=== PATIENT | female | born 1945 | race Caucasian/White ===

== ENCOUNTER → 2018-09-02 | Outpatient (CLI) | payer MEDICARE, OTHER ==
[~2018-09-02] MED LIST: CLINDAMYCIN HC300 MG PO; CLOPIDOGREL75 MG PO; IRON325 M1 PO; LOSARTAN POTASS50 MG PO; PROTONIX40 MG PO
== END ==
LOC: RAD 10:41
PROVIDERS: ATTEND Family Medicine
DX: M79.89 Other specified soft tissue disorders (principal)
CPT/HCPCS: 93971

== ENCOUNTER 2018-09-03 17:24 | Inpatient (IN) | payer MEDICARE, OTHER ==
[~2018-09-03] VITALS: Ht 167.6 cm; Wt 54.0 kg
--- OUTSIDE RECORDS SUMMARY | 2018-09-03 17:27 | XMS REPORT ---
Author Author [facility] Address Unknown Phone Unavailable Care Team Providers Care Room Worker Name Role Phone DLAI MARY Unavailable Unavailable Problems This patient has no known problems. Allergies, Adverse Reactions, Alerts This patient has no known allergies or adverse reactions. Medications This patient has no known medications. Results Test Description Test Time Test Comments Text Results Atomic Results Result Comments CT CHEST W [place] [address] Patient Name: DINA OLIVA MR #: [id number] : 1945 Age/Sex: 72/F Req #: [id number] Adm Physician: Ordered by: MARY MCNALLY DO Report #: [id number] Location: CT Room/Bed: Procedure: [id number] CT/CT CHEST W Exam Date: 07/15/17 Exam Time: 1608 REPORT STATUS: Signed PROCEDURE: CT scan of the chest WITH intravenous contrast, using PE protocol. TECHNIQUE: The chest was scanned utilizing a multidetector helical scanner from the lung apex through the level of the adrenal glands after the IV administration of 69 cc of Isovue 370, with special concentration in the pulmonary arteries. Coronal and sagittal multiplanar reformations were obtained. COMPARISON: CT, CT ABDOMEN/PELVIS W CONTRAST, 06/12/2011, 12:40. INDICATIONS: Suspect PE, ELEVATED D DIMER FINDINGS: Lines/tubes: None. Lungs and Airways: No filling defects in the main, right or left pulmonary arteries to suggest pulmonary embolism. Focal subpleural scarring in the posterior right lower lobe adjacent to small fat containing diaphragmatic hernia (series 4, image 113). Stable focal subpleural 6 mm nodular density in the anterior right lower lobe (series 4, image 100 and sagittal image 26). No other nodules. No consolidation, or other opacities. Airways are clear, without endobronchial lesions. Pleura: No effusion, or pneumothorax. Heart and mediastinum: Prominence of the left thyroid lobe, with a 5 mm calcified nodule (series 3, image 22). Heart size is normal. No pericardial effusion. Atherosclerotic calcification of the coronary arteries and thoracic aorta. Mid descending aorta aneurysm, which measures approximately 5.3 x 4.6 cm (series 3, image 62), however, there is a posterior projection at the mid thoracic aorta level with maximum diameter of 6.2 cm (series 3, image 65 and sagittal image 61). Moderate atherosclerotic calcification of the thoracic aorta with moderate soft plaque, worse in the mid descending aorta (for example, series 3, image 76). No periaortic hematoma. Main pulmonary artery is normal in caliber. Lymph nodes: Mildly enlarged right lower paratracheal lymph node, which measures 1.1 cm in short axis. No other mediastinal or any hilar or axillary adenopathy. Abdomen: Limited contrast-enhanced views of the upper abdomen show no abnormality within the visualized liver. Calcified splenic granulomas. 1.2 x 0.9 cm low density lesion in the left adrenal gland, which measures less than 10 HU, consistent with a benign, lipid rich adrenal adenoma (series 3, image 112).. Punctate nonobstructing calculus in the superior pole of the left kidney (series 3, image 119). Bones: No acute bony abnormalities. Multilevel degenerative disc changes in the thoracic spine. IMPRESSION: 1. no CT evidence of pulmonary embolism. 2. Stable 6 mm nodular density in the anterior right lower lobe since 2010, which is presumed benign. 3. No consolidation or effusion. 4. Mid descending thoracic aortic aneurysm measuring 5.3 x 4.6 cm, however, a posterior projection of the mid aorta level has a maximum diameter of 6.2 cm. No periaortic hematoma. Moderate atherosclerotic calcified and soft plaque disease of the aorta. 5. Mildly enlarged right lower paratracheal lymph node, which is likely reactive. No other adenopathy is identified. 6. 1.2 cm left adrenal benign lipid rich adenoma. No further diagnostic or followup imaging is indicated. 7. Punctate nonobstructing calculus in the superior pole of the left kidney. 8. Findings discussed with Suad Shah PA-C July 15, 2017 1651 hrs. Daiana Dunn M.D. Dictated by: Daiana Dunn M.D. on 07/15/2017 at 17:00 Electronically approved by: Daiana Dunn M.D. on 07/15/2017 at 17:00 Dictated By: DAIANA DUNN MD 170 Transcribed By: PABLO on 07/15/171699 COPY TO: MARY MCNALLY DO
--- OUTSIDE RECORDS SUMMARY | 2018-09-03 17:27 | XMS REPORT | Clinical Summary ---
Author Author [facility] Organization [facility] Address Unknown Phone Unavailable Care Team Providers Care Sole Molder Name Role Phone Asked, No Pcp PCP Unavailable Allergies Comments Active Allergy Reactions Severity Noted Date vomiting Codeine GI 03/10/2017 Intolerance Some anesthesia- intolerance - Nausea / vomiting Other Other (See 03/10/2017 Comments) Medications End Date Status Medication Sig Dispensed Refills Start Date Active omeprazole OTC (PriLOSEC Take 20 mg by 0 OTC) 20 MG EC tablet mouth daily. Active fluticasone (FLONASE) 50 2 sprays by 0 mcg/actuation nasal spray Each Nare route daily. Active albuterol (PROAIR Inhale 2 0 HFA,PROVENTIL puffs every 6 HFA,VENTOLIN HFA) 90 (six) hours mcg/actuation inhaler as needed for wheezing. Active potassium chloride TAKE 1 TABLET 90 tablet 0 (KLOR-CON) 10 MEQ CR BY MOUTH 7 tablet DAILY FOR 3 DAYS Active clopidogrel (PLAVIX) 75 TAKE 1 TABLET 30 tablet 0 08/21/201 mg tablet BY MOUTH 7 EVERY DAY Active metoprolol tartrate Take 50 mg by 0 (LOPRESSOR) 50 mg tablet mouth daily. Active gabapentin (NEURONTIN) Take 325 mg 0 300 mg capsule by mouth 2 (two) times a day. 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, bilateral legs Acute respiratory insufficiency 04/01/2017 S/P aorto-bifemoral bypass surgery 04/01/2017 Postoperative anemia due to acute blood loss 04/01/2017 Esophageal obstruction (inability to pass NGT) 04/01/2017 Current smoker 04/01/2017 Hyperglycemia 04/01/2017 Ileus 03/26/2017 Overview: Added automatically from request for surgery [id number] Encounters Care Team Description Date Type Specialty Humberto Romero MD Chronic ischemic heart disease; Thoracic aortic aneurysm without rupture 05/28/2018 Hospital Radiology Encounter Humbreto Romero MD Chronic ischemic heart disease; Thoracic aortic aneurysm without rupture 05/28/2018 Hospital Radiology Encounter Humberto Romero MD Chronic ischemic heart disease (Primary Dx); Thoracic aortic aneurysm without rupture 05/25/2018 Transcribe Access Orders after 09/02/2017 Family History Medical History Relation Name Comments Clotting disorder Father Kidney failure Mother Relation Name Status Comments Father Mother Social History Date Tobacco Use Types Packs/Day Years Used Started: 03/18/2017 Current Every Day Smoker Cigarettes 1 50 Alcohol Use Drinks/Week oz/Week Comments No Sex Assigned at Date Recorded Not on file Industry Job Start Date Occupation Not on file Not on file Not on file Travel End Travel History Travel Start No recent travel history available. Last Filed Vital Signs Time Taken Vital Sign Reading - Blood Pressure - - Pulse - - Temperature - - Respiratory Rate - - Oxygen Saturation - - Inhaled Oxygen - Concentration 05/28/2018 4:38 PM CDT Weight 54 kg (119 lb) 05/28/2018 4:38 PM CDT Height 167.6 cm (5' 6") 05/28/2018 4:38 PM CDT Body Mass Index 19.21 Plan of Treatment Health Maintenance Due Date Last Done Comments BREAST CANCER SCREENING 01/13/1996 COLON CANCER SCREENING 01/13/1996 SHINGRIX VACCINE (1 of 2) 01/13/1996 ZOSTER VACCINE 2006 PNEUMOCOCCAL 2011 POLYSACCHARIDE VACCINE AGE 65 AND OVER PNEUMOCOCCAL-13 2011 INFLUENZA VACCINE 05/05/2018 Implants Device Identifier Shelf Expiration Date Model / Serial / Lot Implanted Type Area Manufactur er 11/01/2021 [id number] / / [id number] Arco Perph Vasclr Ptfe 1.2x10cm Vascular N/A: N/A BARD 1.65mm - [id number] Graft PERIPHERAL Implanted: 04/01/2017 (Quantity not VASCULAR on file) 01/02/2019 [id number] / / [id number] Graft Vasclr Velour Dbl Bifrctn Vascular N/A: N/A ATRIUM Plystr 8x16mm 40cm - [id number] Graft MEDICAL Implanted: 04/01/2017 (Quantity not [place] on file) 07/08/2021 [id number] / / [id number] Patch Vasclr Perph 0.8x8cm Vascular Right: N/A CAMELIA Wardcu-Guard - [id number] Graft BIOSCIENCE Implanted: Qty: 1 on 04/01/2017 by Km Munoz MD Procedures Comments Procedure Name Priority Date/Time Associated Diagnosis CT ANGIOGRAM LOWER Routine 05/28/2018 Chronic ischemic heart EXTREMITY W WO CONTRAST 6:33 PM CDT disease BILATERAL Thoracic aortic aneurysm without rupture CT ANGIOGRAM CHEST W WO Routine 05/28/2018 Chronic ischemic heart CONTRAST 6:33 PM CDT disease Thoracic aortic aneurysm without rupture ESTIMATED GFR Routine 05/28/2018 4:49 PM CDT POC CREATININE Routine 05/28/2018 4:49 PM CDT after 09/02/2017 Results * CTA Lower Extremity W Wo Contrast Bilateral (05/28/2018 6:33 PM CDT) Narrative Performed At EXAMINATION:CT ANGIOGRAM LOWER EXTREMITY W WO CONTRAST BILATERAL [facility] CLINICAL HISTORY:I25.9 Chronic ischemic heart diseaseunspecified, I71.2 Thoracic aortic aneurysmwithout rupture, CHRONIC ISCHEMIC HEART DISEASE TECHNIQUE: Multiple CT angiographic images of the abdomen, pelvis, and bilateral lower extremities were obtained during intravenous administration of iodinated contrast. Multiple computerized reformatted images as well as 3-D volume rendered images were also obtained. CT imaging was performed with iterative reconstruction techniques and/or automated exposure control to reduce radiation dose. COMPARISON:None. FINDINGS: Abdomen/Pelvis CTA: Prominent cholelith noted within the fundus of the gallbladder. 3.5 cm fusiform infrarenal abdominal aortic aneurysm is present. Scattered vascular calcifications are seen throughout. The mid mesenteric vessels are in a swirling pattern likely due to malrotation, developmental variant. Status post aortobifem bypass graft. Contrast passes freely through the graft material.Minimal contrast is seen within the zuni internal/external iliac arteries as a result. Remainder of the limited visualization of the liver, stomach, pancreas, kidneys, spleen, GI tract, bony and soft tissue structures is unremarkable, apart from degenerative changes of the spine. Right lower extremity CTA: High-grade stenosis noted at the origin of the right superficial femoral artery. This vessel is diminutive and highly stenotic throughout its length. The right profunda femoris artery is prominent. Status post right total knee arthroplasty. Metallic scatter artifact precludes full evaluation of the adjacent vasculature. The visualized aspects of the right popliteal artery are also diminutive. Contrast extends into the infrageniculate vasculature primarily via the peroneal artery. The anterior/posterior tibialis arteries are not well opacified. Left lower extremity CTA: High-grade stenosis noted at the origin of the left superficial femoral artery. This vessel is diminutive and highly stenotic throughout its length. The left profunda femoris artery is prominent. Status post left total knee arthroplasty. Metallic scatter artifact precludes full evaluation of the adjacent vasculature. The visualized aspects of the left popliteal artery are also diminutive. The mid left popliteal artery is occluded. Contrast extends into the infrageniculate vasculature primarily via the peroneal and anterior tibialis arteries. The posterior tibialis artery is not well opacified. IMPRESSION: Cholelithiasis. 3.5 cm AAA status post aortobifem bypass graft. Focal presumed chronic occlusions within the left mid popliteal artery. Limited single vessel runoff of the right lower extremity. Limited two-vessel runoff of the left lower extremity. [facility]-[id number] Procedure Note Hm Interface, Radiology Results Incoming - 05/28/2018 8:02 PM CDT EXAMINATION: CT ANGIOGRAM LOWER EXTREMITY W WO CONTRAST BILATERAL CLINICAL HISTORY: I25.9 Chronic ischemic heart disease unspecified, I71.2 Thoracic aortic aneurysm without rupture, CHRONIC ISCHEMIC HEART DISEASE TECHNIQUE: Multiple CT angiographic images of the abdomen, pelvis, and bilateral lower extremities were obtained during intravenous administration of iodinated contrast. Multiple computerized reformatted images as well as 3-D volume rendered images were also obtained. CT imaging was performed with iterative reconstruction techniques and/or automated exposure control to reduce radiation dose. COMPARISON: None. FINDINGS: Abdomen/Pelvis CTA: Prominent cholelith noted within the fundus of the gallbladder. 3.5 cm fusiform infrarenal abdominal aortic aneurysm is present. Scattered vascular calcifications are seen throughout. The mid mesenteric vessels are in a swirling pattern likely due to malrotation, developmental variant. Status post aortobifem bypass graft. Contrast passes freely through the graft material. Minimal contrast is seen within the zuni internal/external iliac arteries as a result. Remainder of the limited visualization of the liver, stomach, pancreas, kidneys, spleen, GI tract, bony and soft tissue structures is unremarkable, apart from degenerative changes of the spine. Right lower extremity CTA: High-grade stenosis noted at the origin of the right superficial femoral artery. This vessel is diminutive and highly stenotic throughout its length. The right profunda femoris artery is prominent. Status post right total knee arthroplasty. Metallic scatter artifact precludes full evaluation of the adjacent vasculature. The visualized aspects of the right popliteal artery are also diminutive. Contrast extends into the infrageniculate vasculature primarily via the peroneal artery. The anterior/posterior tibialis arteries are not well opacified. Left lower extremity CTA: High-grade stenosis noted at the origin of the left superficial femoral artery. This vessel is diminutive and highly stenotic throughout its length. The left profunda femoris artery is prominent. Status post left total knee arthroplasty. Metallic scatter artifact precludes full evaluation of the adjacent vasculature. The visualized aspects of the left popliteal artery are also diminutive. The mid left popliteal artery is occluded. Contrast extends into the infrageniculate vasculature primarily via the peroneal and anterior tibialis arteries. The posterior tibialis artery is not well opacified. IMPRESSION: Cholelithiasis. 3.5 cm AAA status post aortobifem bypass graft. Focal presumed chronic occlusions within the left mid popliteal artery. Limited single vessel runoff of the right lower extremity. Limited two-vessel runoff of the left lower extremity. [facility]-[id number] Performing Organization Address City/State/Zipcode Phone Number [facility] [address] [place] [address] * CTA Chest W Wo Contrast (05/28/2018 6:33 PM CDT) Narrative Performed At EXAMINATION:CT ANGIOGRAM CHEST W WO [facility]AST [facility] CLINICAL HISTORY:I25.9 Chronic ischemic heart diseaseunspecified, I71.2 Thoracic aortic aneurysmwithout rupture, CHRONIC ISCHEMIC HEART DISEASE TECHNIQUE: Multiple CT angiographic images of the chest were obtained during intravenous administration of contrast. Multiple computerized reformatted images as well as 3-D volume rendered images were also obtained. Precontrast images of the chest were also obtained. CT imaging was performed with iterative reconstruction technique and/or automated exposure control to reduce radiation dose. COMPARISON:None available FINDINGS: CTA: 1. Thoracic Aorta: Extensive atherosclerotic disease of the thoracic aorta. Ascending thoracic aorta at the level of the right pulmonary artery measures up to 32 mm, which is within normal limits. The aortic arch contains both calcified and noncalcified mural plaque and measures up to 28 mm. There is fusiform aneurysmal dilatation of the descending thoracic aorta which maximally measures up to 49 mm and without significant change in appearance since previous examination. There is extensive mural plaquing of the descending thoracic aorta. The aorta at the level of the diaphragmatic hiatus measures up to 32 mm. Partially imaged extensive atherosclerotic disease involving the upper abdominal aorta and mesenteric vasculature. 2. Thoracic Branch Vessels: Atherosclerosis of the thoracic branch vessels without a significant stenosis. The vertebral arteries are widely patent bilaterally. The subclavian and common carotid arteries are patent. 3. Additional Findings: none CHEST: 1. Heart: Heart size is within normal limits. Coronary artery calcifications. 2. Nodes: No significant adenopathy is seen in the base of the neck. The right lobe of the thyroid gland has either been previously resected or is diminutive in appearance. No significant adenopathy is present within the axilla. No significant mediastinal or hilar lymph nodes by size criteria. 3. Lungs: Emphysema is present throughout the lungs with peripheral airway wall thickening. There is apical pleural scarring. Minimal atelectasis is seen in the lung bases. Stable right basilar nodule versus nodular scarring adjacent to the right diaphragmatic surface on series 4, image 80 measuring up to 6 mm. 4. Nodule:No suspicious pulmonary nodules or masses. 5. Fluid: No pleural effusions. 6. Additional Findings: Degenerative changes of the bones. No suspicious bony lesion. Limited assessment of the upper abdomen demonstrates no focal abnormality within the liver. No definite abnormality within the imaged portions of the solid organs. Tiny hiatal hernia. IMPRESSION: Stable descending thoracic aortic aneurysm measuring up to 49 mm. Additional findings and details as above. [facility]-[id number] Procedure Note [facility], Radiology Results Incoming - 05/28/2018 6:58 PM CDT EXAMINATION: CT ANGIOGRAM CHEST W WO CONTRAST CLINICAL HISTORY: I25.9 Chronic ischemic heart disease unspecified, I71.2 Thoracic aortic aneurysm without rupture, CHRONIC ISCHEMIC HEART DISEASE TECHNIQUE: Multiple CT angiographic images of the chest were obtained during intravenous administration of contrast. Multiple computerized reformatted images as well as 3-D volume rendered images were also obtained. Precontrast images of the chest were also obtained. CT imaging was performed with iterative reconstruction technique and/or automated exposure control to reduce radiation dose. COMPARISON: None available FINDINGS: CTA: 1. Thoracic Aorta: Extensive atherosclerotic disease of the thoracic aorta. Ascending thoracic aorta at the level of the right pulmonary artery measures up to 32 mm, which is within normal limits. The aortic arch contains both calcified and noncalcified mural plaque and measures up to 28 mm. There is fusiform aneurysmal dilatation of the descending thoracic aorta which maximally measures up to 49 mm and without significant change in appearance since previous examination. There is extensive mural plaquing of the descending thoracic aorta. The aorta at the level of the diaphragmatic hiatus measures up to 32 mm. Partially imaged extensive atherosclerotic disease involving the upper abdominal aorta and mesenteric vasculature. 2. Thoracic Branch Vessels: Atherosclerosis of the thoracic branch vessels without a significant stenosis. The vertebral arteries are widely patent bilaterally. The subclavian and common carotid arteries are patent. 3. Additional Findings: none CHEST: 1. Heart: Heart size is within normal limits. Coronary artery calcifications. 2. Nodes: No significant adenopathy is seen in the base of the neck. The right lobe of the thyroid gland has either been previously resected or is diminutive in appearance. No significant adenopathy is present within the axilla. No significant mediastinal or hilar lymph nodes by size criteria. 3. Lungs: Emphysema is present throughout the lungs with peripheral airway wall thickening. There is apical pleural scarring. Minimal atelectasis is seen in the lung bases. Stable right basilar nodule versus nodular scarring adjacent to the right diaphragmatic surface on series 4, image 80 measuring up to 6 mm. 4. Nodule:No suspicious pulmonary nodules or masses. 5. Fluid: No pleural effusions. 6. Additional Findings: Degenerative changes of the bones. No suspicious bony lesion. Limited assessment of the upper abdomen demonstrates no focal abnormality within the liver. No definite abnormality within the imaged portions of the solid organs. Tiny hiatal hernia. IMPRESSION: Stable descending thoracic aortic aneurysm measuring up to 49 mm. Additional findings and details as above. [facility]-[id number] Performing Organization Address City/State/Zipcode Phone Number [facility] [address] [place] [address] * Estimated GFR (05/28/2018 4:49 PM CDT) GFR Non Af Amer >90 mL/min/1.73 m2 [facility] DEPARTMENT OF PATHOLOGY AND GENOMIC MEDICINE GFR Af Amer >90 mL/min/1.73 m2 [facility] DEPARTMENT OF Comment: PATHOLOGY AND Chronic kidney disease: <60 GENOMIC MEDICINE mL/min/1.73m2 Kidney failure: <15 mL/min/1.73m2 The estimated GFR is calculated from the IDMS-traceable Modification of Diet in Renal Disease Equation. The accuracy of the calculation is poor when the creatinine is normal. Calculated values >90 mL/min/1.73m2 are not reported. This equation has not been validated in children (<18 years), women, the elderly (>70 years), or ethnic groups other than Caucasians and Americans. Specimen Blood Performing Organization Address City/State/Zipcode Phone Number [facility] DEPARTMENT OF [address] [place] [address] PATHOLOGY AND GENOMIC MEDICINE * POC creatinine (05/28/2018 4:49 PM CDT) POC creatinine 0.6 0.5 - 0.9 mg/dl [facility] DEPARTMENT OF Comment: PATHOLOGY AND Meter ID: [id number] GENOMIC MEDICINE Rn Anesthesiology: [employer] Specimen Blood Performing Organization Address City/State/Zipcode Phone Number [facility] DEPARTMENT OF [address] [place] [address] PATHOLOGY AND GENOMIC MEDICINE after 09/02/2017 Insurance Payer Benefit Subscriber ID Type Phone Address Plan / Group MEDICARE MEDICARE xxxxxxxxxx Medicare [place] PART A AND B [employer] [place] [employer] [place] Advance Directives Patient has advance care planning documents on file. For more information, deirdre knight contact: Jignesh Cherry [address] [place] [id number]
[2018-09-03] MEDS ORDERED: SODIUM CHLORIDE 0.9% 1000ML 1,000 ML IV STA (18:40)
[2018-09-03] MEDS ORDERED: CLINDAMYCIN 600MG / 50ML 50 ML IV SCH (18:45)
[2018-09-03] MEDS ORDERED: MORPHINE SULFATE 2 MG/ML SYR IV ONE (18:50)
[2018-09-03] MEDS ORDERED: ONDANSETRON HCL INJ 2 MG/ML VIAL IV ONE (19:00)
[2018-09-03 20:40] LABS: BASOPHILS % 0.4 % (0.0-1.0); EOSINOPHILS % 10.2 % (0.0-6.0); LYMPHOCYTES # (AUTO) 2.7 (1.0-3.2); LYMPHOCYTES % 27.5 % (18.0-39.1); MEAN CORPUSCULAR HEMOGLOBIN 14.5 pg (28-32); MEAN CORPUSCULAR HGB CONC 27.3 g/dL (31-35); MEAN CORPUSCULAR VOLUME 53.2 fL (81-99); MONOCYTES # (AUTO) 0.8 (0.2-0.8); MONOCYTES % 7.6 % (4.4-11.3); NEUTROPHILS # (AUTO) 5.4 (2.1-6.9); NEUTROPHILS % 53.9 % (38.7-80.0); PLATELET COUNT 384 x10e3/uL (140-360); RED BLOOD COUNT 3.93 x10e6/uL (3.6-5.1); RED CELL DISTRIBUTION WIDTH 21.3 % (11.7-14.4)
[2018-09-03 20:43] LABS: BILIRUBIN,URINE NEGATIVE (NEGATIVE); CLARITY,URINE SL CLOUDY (CLEAR); COLOR,URINE YELLOW (YELLOW); KETONES,URINE NEGATIVE (NEGATIVE); LEUKOCYTE ESTERASE ,URINE TRACE (NEGATIVE); NITRITE,URINE NEGATIVE (NEGATIVE); PROTEIN,URINE DIPSTICK NEGATIVE (NEGATIVE); URINE UROBILINOGEN 0.2 mg/dL (0.2 - 1)
[2018-09-03 20:46] LABS: HEMOGLOBIN 5.7 g/dL (12.0-16.0)
[2018-09-03 20:47] LABS: HEMATOCRIT 20.9 % (34.2-44.1)
[2018-09-03 20:51] LABS: BACTERIA,URINE MODERATE /HPF; EPITHELIAL CELLS,URINE MODERATE /LPF; WBC,URINE (MAN) 0-5 /HPF (0-5)
[2018-09-03 20:55] LABS: ALBUMIN 3.7 g/dL (3.5-5.0); ALBUMIN/GLOBULIN RATIO 1.2 (0.8-2.0); ALKALINE PHOSPHATASE 87 IU/L (40-150); ANION GAP 14.1 mmol/L (8-16); BLOOD UREA NITROGEN 11 mg/dL (7-26); BUN/CREATININE RATIO 17 (6-25); CALCIUM 9.4 mg/dL (8.4-10.2); CARBON DIOXIDE 21 mmol/L (22-29); CHLORIDE 108 mmol/L (98-107); CREATININE, SERUM 0.65 mg/dL (0.57-1.11); EST GLOMERULAR FILTRATION RATE > 60 ML/MIN (60-); GLUCOSE 100 mg/dL (74-118); POTASSIUM 4.1 mmol/L (3.5-5.1); SODIUM 139 mmol/L (136-145)
[2018-09-03 20:56] LABS: ALANINE AMINOTRANSFERASE < 6 IU/L (0-55)
[2018-09-03] MEDS ORDERED: SODIUM CHLORIDE 0.9% 250ML 250 ML IV ONE (21:15)
[2018-09-03 21:43] LABS: BASOPHILS # (AUTO) 0.1 (0.0-0.1); BASOPHILS % 0.7 % (0.0-1.0); EOSINOPHILS # (AUTO) 1.1 (0.0-0.4); LYMPHOCYTES # (AUTO) 3.1 (1.0-3.2); LYMPHOCYTES % 28.5 % (18.0-39.1); MEAN CORPUSCULAR HEMOGLOBIN 14.6 pg (28-32); MEAN CORPUSCULAR HGB CONC 27.5 g/dL (31-35); MONOCYTES % 8.7 % (4.4-11.3); NEUTROPHILS # (AUTO) 5.7 (2.1-6.9); NEUTROPHILS % 51.7 % (38.7-80.0); PLATELET COUNT 386 x10e3/uL (140-360); RED BLOOD COUNT 3.98 x10e6/uL (3.6-5.1); RED CELL DISTRIBUTION WIDTH 21.3 % (11.7-14.4)
[2018-09-03 21:45] LABS: HEMATOCRIT 21.1 % (34.2-44.1); HEMOGLOBIN 5.8 g/dL (12.0-16.0)
--- OUTSIDE RECORDS SUMMARY | 2018-09-03 22:02 | XMS REPORT | Clinical Summary ---
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, bilateral legs Acute respiratory insufficiency 04/01/2017 S/P aorto-bifemoral bypass surgery 04/01/2017 Postoperative anemia due to acute blood loss 04/01/2017 Esophageal obstruction (inability to pass NGT) 04/01/2017 Current smoker 04/01/2017 Hyperglycemia 04/01/2017 Ileus 03/26/2017 Overview: Added automatically from request for surgery [id number] Encounters Care Team Description Date Type Specialty Humberto Romero MD Chronic ischemic heart disease; Thoracic aortic aneurysm without rupture 05/28/2018 Hospital Radiology Encounter Humberto Romero MD Chronic ischemic heart disease; [...] Lot Implanted Type Area Manufactur er 11/01/2021 [id number] / / [id number] Unity Perph Vasclr Ptfe 1.2x10cm Vascular N/A: N/A BARD 1.65mm - [id number] Graft PERIPHERAL Implanted: 04/01/2017 (Quantity not VASCULAR on file) 01/02/2019 [id number] / / [id number] Graft Vasclr Velour Dbl Bifrctn Vascular N/A: N/A ATRIUM Plystr 8x16mm 40cm - [id number] Graft MEDICAL Implanted: 04/01/2017 (Quantity not SALBADOR on file) 07/08/2021 [id number] / / [id number] Patch Vasclr Perph 0.8x8cm Vascular Right: N/A CAMELIA Wardcu-Guard - [id number] Graft BIOSCIENCE Implanted: Qty: 1 on 04/01/2017 [...] graft material.Minimal contrast is seen within the robinson internal/external iliac arteries as a result. Remainder [...] two-vessel runoff of the left lower extremity. [facility]-[id number] Procedure Note Hm Interface, Radiology Results Incoming [...] material. Minimal contrast is seen within the robinson internal/external iliac arteries as a result. Remainder [...] two-vessel runoff of the left lower extremity. [facility]-[id number] Performing Organization Address City/State/Zipcode Phone Number [facility] [address] [place] [address] * CTA Chest W Wo Contrast (05/28/2018 6:33 PM CDT) Narrative Performed At EXAMINATION:CT ANGIOGRAM CHEST W WO CONTRAST [facility] CLINICAL HISTORY:I25.9 Chronic ischemic heart diseaseunspecified, I71.2 [...] mm. Additional findings and details as above. [facility]-[id number] Procedure Note [facility], Radiology Results Incoming - 05/28/2018 6:58 PM [...] mm. Additional findings and details as above. [facility]-[id number] Performing Organization Address City/State/Zipcode Phone Number [place] [address] [place] [address] * Estimated GFR (05/28/2018 4:49 PM CDT) GFR Non Af Amer >90 mL/min/1.73 m2 [facility] DEPARTMENT OF PATHOLOGY AND GENOMIC MEDICINE GFR Af Amer >90 mL/min/1.73 m2 [facility] DEPARTMENT OF Comment: PATHOLOGY AND Chronic kidney [...] Blood Performing Organization Address City/State/Zipcode Phone Number [facility] DEPARTMENT OF [address] [place] [address] PATHOLOGY AND GENOMIC MEDICINE * POC creatinine (05/28/2018 4:49 PM CDT) POC creatinine 0.6 0.5 - 0.9 mg/dl [facility] DEPARTMENT OF Comment: PATHOLOGY AND Meter ID: [id number] GENOMIC MEDICINE Coffee Sampler: Aram Pack Specimen Blood Performing Organization Address City/State/Zipcode Phone Number [facility] DEPARTMENT OF [address] [place] [address] PATHOLOGY AND GENOMIC MEDICINE after 09/02/2017 Insurance Payer Benefit Subscriber ID Type Phone Address Plan / Group MEDICARE MEDICARE xxxxxxxxxx Medicare [place] PART A AND B [employer] [place] [employer] x[employer]xxx Commercial [place] Advance Directives Patient has advance care planning documents on file. For more information, deirdre knight contact: Jignesh Cherry [address] [place] [id number]
--- OUTSIDE RECORDS SUMMARY | 2018-09-03 22:02 | XMS REPORT | Summary of Care ---
Author Author Lin Pitts M.A. Unknown Address Unknown Phone Unavailable Care Team Providers Care Adult Literacy Instructor Name Role Phone ROSA BERRY M.D. Unavailable Unavailable SUPA ROLAND N.P. Unavailable Unavailable [facility] [place], ROSA Bermudez Unavailable Unavailable Unavailable Unavailable Functional Status Name Dates Details Functional status health issues are not documented Status: Name Dates Details Cognitive status health issues are not documented Status: Problems Name Dates Details Anxiety (300.00, F41.9) Status: Active Essential hypertension, benign (401.1, I10) Status: Active Myalgia and myositis (729.1) Status: Active Abnormal loss of weight (783.21, R63.4) Status: Active Acute serous otitis media (381.01, H65.00) Status: Active Alcoholism (303.90, F10.20) Status: Active Anemia (285.9, D64.9) Status: Active COPD (chronic obstructive pulmonary disease) (496, J44.9) Status: Active Abnormal alkaline phosphatase test (790.5, R74.8) Status: Active Edema (782.3, R60.9) Status: Active Abnormal liver enzymes (790.5, R74.8) Status: Active Peripheral arteriosclerosis (440.20, I70.209) Status: Active Abdominal aortic aneurysm (441.4, I71.4) Status: Active Right leg swelling (729.81, M79.89) Status: Active Right calf pain (729.5, M79.661) Status: Active Medications Name Dates Details Fluticasone Propionate 50 MCG/ACT Nasal Suspension USE 1 SPRAY IN EACH NOSTRIL ONCE DAILY. Quantity: 16 ROSA BERRY M.D. * Start : 13-Mar-2014 Active Symbicort 160-4.5 MCG/ACT Inhalation Aerosol INHALE 2 PUFFS TWICE DAILY. RINSE MOUTH AFTER USE. * Quantity: 1 Refills: 2 ROSA BERRY M.D. Active 10.2 GM Inhaler PriLOSEC OTC TBE * Refills: 0 Active Losartan Potassium 50 MG Oral Tablet TAKE 1 TABLET DAILY * Refills: 0 Active 30 Tablet Bottle Clopidogrel Bisulfate 75 MG Oral Tablet TAKE 1 TABLET DAILY * Refills: 0 Active 30 Tablet Bottle Allergies and Adverse Reactions Name Dates Details Codeine Derivatives (Allergy) Status: Active Past Medical History Name Dates Details History of Acute recurrent sinusitis (461.9, J01.91) Status: Resolved History of essential hypertension (V12.59, Z86.79) Status: Resolved History of hyperlipidemia (V12.29, Z86.39) Status: Resolved History of osteopenia (V13.59, Z87.39) Status: Resolved Procedures Procedure Dates Details History of Tonsillectomy With Adenoidectomy Completed History of Tubal Ligation Completed History of Total Knee Arthroplasty Completed History of Thyroid Surgery Completed Immunization Name Dates Details Fluzone Quadrivalent 0.5 ML Intramuscular Suspension on: 30-Aug-2018 Family History Name Dates Details Family history of Hypertension (V17.49) Status: Active Name Dates Details Family history of malignant neoplasm of colon (V16.0, Z80.0) Status: Active Social History Name Dates Details - Status: Name Dates Details Heavy tobacco smoker Smoker. current status unknown Vital Signs Date Test Result Details [id number] Physical Findings 10 Status: Comments: PHQ-9 Adult Depression Screening [id number] BP Systolic 131 mm[Hg] Status: Comments: Location: LUE; Position: Sitting BP Diastolic 61 mm[Hg] Status: Comments: Location: LUE; Position: Sitting Height 66 in Status: Weight 115 lb Status: Body Mass Index Calculated 18.56 kg/m2 Status: Body Surface Area Calculated 1.58 m2 Status: Temperature 97.7 f Status: Comments: Method: Temporal Heart Rate 84 /min Status: Comments: Location: L Brachial Artery; Respiration Rate 16 /min Status: Physical Findings 0 Status: Comments: Alcohol Screen - How many times in the past yr have you had 5 (for M) or 4 (for F) or 4 (for all > 65yrs) or more drinks in a day? Results Date Description Value Details Results not documented Plan of Care Name Dates Details Planned Observations Planned Goals not documented Interventions Provided Instructions* Patient Specific Education Given; Done: 03 Sep 2018 Plan* To er for further eval * f/u with pcp * no charge for visit Instructions Name Dates Details Instructions not documented Encounters Appointment; ADRIEL KEENAN M.D. Encounter Diagnosis: Problem not documented On: 04-Aug-2017 9:30 Appointment; SUPA ROLAND NP Encounter Diagnosis: Problem not documented On: 03-Sep-2018 14:15
[2018-09-03] MEDS: CLINDAMYCIN 300MG 50 ML IV SCH (22:52)
[2018-09-03] MEDS ORDERED: LOSARTAN POTASS50 MG PO (23:52)
[2018-09-03] MEDS ORDERED: CLOPIDOGREL75 MG PO (23:52)
[2018-09-04] VITALS (11 sets, daily range): BP systolic 115–145; BP diastolic 56–78
[2018-09-04] MEDS: CLINDAMYCIN 300MG 50 ML IV SCH
[2018-09-04] MEDS: SODIUM CHLORIDE 0.9% 1000ML 1,000 ML IV SCH ×2 (01:03→13:18)
[2018-09-04] MEDS: PIPER-TAZ 3.375 GM 50 ML IV SCH ×4 (01:03→18:23)
[2018-09-04] MEDS ORDERED: SODIUM CHLORIDE 0.9% 250ML 250 ML ONE ×2 (02:03→08:47)
[2018-09-04] MEDS: CLINDAMYCIN PHOS 900MG/ 50ML 50 ML IV SCH ×3 (06:02→21:45)
[2018-09-04 07:25] LABS: BASOPHILS # (AUTO) 0.1 (0.0-0.1); BASOPHILS % 0.8 % (0.0-1.0); HEMATOCRIT 23.2 % (34.2-44.1); LYMPHOCYTES # (AUTO) 2.3 (1.0-3.2); LYMPHOCYTES % 25.8 % (18.0-39.1); MEAN CORPUSCULAR HEMOGLOBIN 16.8 pg (28-32); MEAN CORPUSCULAR HGB CONC 28.4 g/dL (31-35); MEAN CORPUSCULAR VOLUME 58.9 fL (81-99); MONOCYTES # (AUTO) 0.9 (0.2-0.8); MONOCYTES % 10.3 % (4.4-11.3); NEUTROPHILS # (AUTO) 4.5 (2.1-6.9); NEUTROPHILS % 51.9 % (38.7-80.0); PLATELET COUNT 282 x10e3/uL (140-360); RED BLOOD COUNT 3.94 x10e6/uL (3.6-5.1)
[2018-09-04 07:30] LABS: HEMOGLOBIN 6.6 g/dL (12.0-16.0)
[2018-09-04 08:02] LABS: BLOOD UREA NITROGEN 10 mg/dL (7-26); BUN/CREATININE RATIO 15 (6-25); CALCIUM 8.3 mg/dL (8.4-10.2); CARBON DIOXIDE 19 mmol/L (22-29); CHLORIDE 112 mmol/L (98-107); CREATININE, SERUM 0.66 mg/dL (0.57-1.11); EST GLOMERULAR FILTRATION RATE > 60 ML/MIN (60-); GLUCOSE 87 mg/dL (74-118); SODIUM 139 mmol/L (136-145)
[2018-09-04] MEDS: HYDROCODONE/APAP 5MG-325MG TAB PO PRN ×2 (11:40→21:47)
[2018-09-04 13:19] LABS: FERRITIN 7.87 ng/mL (4.63-204.00)
[2018-09-04 14:38] LABS: HEMATOCRIT 28.1 % (34.2-44.1); HEMOGLOBIN 8.4 g/dL (12.0-16.0)
--- NOTE | 2018-09-04 15:42 | History and Physical ---
CHIEF COMPLAINT: Right lower leg pain. HISTORY OF PRESENT ILLNESS: This is a 73-year-old white woman who states over the past week she has had lower leg swelling and pain. Patient underwent Doppler ultrasound of the right lower leg on September 02, 2018, which did not reveal any evidence of deep venous thrombosis. However, the patient states that her right lower leg has become more red and painful than usual. In the emergency room, patient was found to have a hemoglobin of 5.7. The hemoglobin was repeated and was confirmed with a value of 5.8. Patient was transfused 2 units of packed red blood cells overnight. The patient denies any melena or hematochezia. Patient is on clopidogrel because of history of severe peripheral artery disease. Patient states she has a brother who of colon cancer. She also has a father who of hemorrhaging secondary to peptic ulcers. Iron studies done revealed a serum iron of 25 with a TIBC of 448. Patient's percent iron saturation was low level of 6. Patient was admitted for further evaluation and treatment. Patient states that she has never had a colonoscopy and her last mammogram was 10 years ago. REVIEW OF SYSTEMS GENERAL: Weight has been stable. No fevers or chills. HEENT: No headaches. No vision changes. CARDIOVASCULAR/RESPIRATORY: Slight shortness of breath secondary to COPD. Denies any cough or chest pain at this time. GI: Denies any melena or hematochezia. Denies any abdominal pain. : Denies any UTI symptoms. NEUROMUSCULAR: Complains of swelling in her right lower leg over the last 1 week. Patient also complains of chronic pain in her bilateral feet secondary to neuropathy. FAMILY HISTORY: Brother of colon cancer. Father of hemorrhaging secondary to peptic ulcer disease. Mother of chronic leukemia. SURGICAL HISTORY 1. Bilateral total knee replacement. 2. Abdominal aortic aneurysm. 3. Bilateral femoral-popliteal bypass. SOCIAL HISTORY: This woman is , lives with her . She is retired. She is a heavy tobacco smoker. Patient states she quit drinking alcohol in 2013. PAST MEDICAL HISTORY 1. Peripheral artery disease. 2. COPD. 3. Tobacco abuse. 4. Hypertensive heart disease. HOME MEDICATIONS 1. Losartan 100 mg daily. 2. Clopidogrel 75 mg daily. ALLERGIES: CODEINE. PHYSICAL EXAMINATION GENERAL: She is awake, alert, in no distress. Very pleasant and cooperative with exam. Her and 2 adult daughters are at bedside. VITAL SIGNS: Height is 5 feet 6 inches, weighs 119 pounds. BMI is 19. INTEGUMENT: Skin is warm and dry. Patient has obvious pallor. No jaundice or diaphoresis. HEENT: Anicteric sclerae with moist mucous membranes. NECK: Supple. CARDIOVASCULAR: Distant heart sounds. Tachycardic rate and rhythm. LUNGS: No rales, no rhonchi, no wheezing. ABDOMEN: Soft. Normal bowel sounds. Nontender. EXTREMITIES: Patient has trace 1+ edema in the bilateral legs. Patient has erythema, warmth, and tenderness in the anterior aspect of the right lower leg. NEUROLOGICAL: Intact. No gross focal deficits appreciated. IMPRESSION 1. Sepsis secondary to right lower leg cellulitis. 2. Iron deficiency anemia. 3. Chronic obstructive pulmonary disease. 4. Tobacco abuse. 5. Hypertensive heart disease. 6. Peripheral artery disease. PLAN 1. Stop clopidogrel. 2. We will repeat hemoccult stool since the first one was negative for blood. 3. We will stop intravenous fluids. 4. Follow hemoglobin and hematocrit. 5. Agree with blood transfusion. 6. We will consult gastroenterology since patient most likely needs upper and lower endoscopy. 7. I ordered chest x-ray. 8. Highly recommend tobacco cessation. 9. Continue intravenous antibiotics for patient's leg cellulitis. I spent an hour in the care of this patient. Job#: [id number] TEAGAN
--- NOTE | 2018-09-04 18:25 | Diagnostic Imaging Report ---
EXAMINATION: CHEST SINGLE (PORTABLE) INDICATION: ^COPD and profound anemia ^[id number] ^1650 ^Y COMPARISON: Chest CT dated 07/15/2017 FINDINGS: AP view TUBES and LINES: None. LUNGS: Lungs are well inflated. There is no evidence of pneumonia or pulmonary edema. PLEURA: No pleural effusion or pneumothorax. HEART AND MEDIASTINUM: The cardiomediastinal silhouette is unremarkable. BONES AND SOFT TISSUES: No acute osseous lesion. Soft tissues are unremarkable. UPPER ABDOMEN: No free air under the diaphragm. IMPRESSION: No acute thoracic abnormality. Signed by: Dr. Greg Flores MD on 09/04/2018 6:21 PM
[2018-09-05] VITALS (8 sets, daily range): BP systolic 116–147; BP diastolic 56–66
[2018-09-05] MEDS: PIPER-TAZ 3.375 GM 50 ML IV SCH ×4 (00:33→18:04)
[2018-09-05] MEDS: HYDROCODONE/APAP 5MG-325MG TAB PO PRN ×3 (04:32→09:10)
[2018-09-05] MEDS: CLINDAMYCIN PHOS 900MG/ 50ML 50 ML IV SCH ×3 (05:29→21:25)
[2018-09-05 06:23] LABS: BASOPHILS # (AUTO) 0.1 (0.0-0.1); BASOPHILS % 1.1 % (0.0-1.0); EOSINOPHILS # (AUTO) 0.8 (0.0-0.4); EOSINOPHILS % 9.9 % (0.0-6.0); HEMATOCRIT 25.6 % (34.2-44.1); HEMOGLOBIN 7.7 g/dL (12.0-16.0); LYMPHOCYTES # (AUTO) 2.3 (1.0-3.2); LYMPHOCYTES % 27.9 % (18.0-39.1); MEAN CORPUSCULAR HEMOGLOBIN 18.8 pg (28-32); MEAN CORPUSCULAR HGB CONC 30.1 g/dL (31-35); MEAN CORPUSCULAR VOLUME 62.6 fL (81-99); MONOCYTES # (AUTO) 0.9 (0.2-0.8); MONOCYTES % 11.1 % (4.4-11.3); NEUTROPHILS # (AUTO) 4.2 (2.1-6.9); NEUTROPHILS % 49.8 % (38.7-80.0); PLATELET COUNT 261 x10e3/uL (140-360); RED BLOOD COUNT 4.09 x10e6/uL (3.6-5.1)
[2018-09-05 06:38] LABS: BLOOD UREA NITROGEN 8 mg/dL (7-26); BUN/CREATININE RATIO 11 (6-25); CALCIUM 8.5 mg/dL (8.4-10.2); CARBON DIOXIDE 22 mmol/L (22-29); CHLORIDE 114 mmol/L (98-107); CREATININE, SERUM 0.73 mg/dL (0.57-1.11); EST GLOMERULAR FILTRATION RATE > 60 ML/MIN (60-); GLUCOSE 86 mg/dL (74-118); SODIUM 141 mmol/L (136-145)
[2018-09-05] MEDS ORDERED: PEG (High)/E-LYTE SOLN 4,000 ML BTL PO NR (15:45)
[2018-09-06 00:37] VITALS: BP 126/60
[2018-09-06] MEDS: PIPER-TAZ 3.375 GM 50 ML IV SCH ×3 (03:10→13:12)
[2018-09-06 04:00] VITALS: BP 125/56
[2018-09-06 05:56] LABS: BASOPHILS # (AUTO) 0.1 (0.0-0.1); BASOPHILS % 0.8 % (0.0-1.0); EOSINOPHILS # (AUTO) 0.6 (0.0-0.4); EOSINOPHILS % 7.2 % (0.0-6.0); HEMATOCRIT 24.8 % (34.2-44.1); HEMOGLOBIN 7.6 g/dL (12.0-16.0); LYMPHOCYTES # (AUTO) 2.1 (1.0-3.2); LYMPHOCYTES % 24.3 % (18.0-39.1); MEAN CORPUSCULAR HGB CONC 30.6 g/dL (31-35); MEAN CORPUSCULAR VOLUME 62.2 fL (81-99); MONOCYTES # (AUTO) 0.6 (0.2-0.8); MONOCYTES % 7.4 % (4.4-11.3); NEUTROPHILS % 59.1 % (38.7-80.0); PLATELET COUNT 227 x10e3/uL (140-360); RED BLOOD COUNT 3.99 x10e6/uL (3.6-5.1)
[2018-09-06] MEDS: CLINDAMYCIN PHOS 900MG/ 50ML 50 ML IV SCH (06:02)
[2018-09-06 06:24] LABS: ANION GAP 11.7 mmol/L (8-16); BLOOD UREA NITROGEN 8 mg/dL (7-26); BUN/CREATININE RATIO 13 (6-25); CALCIUM 8.6 mg/dL (8.4-10.2); CARBON DIOXIDE 22 mmol/L (22-29); CHLORIDE 113 mmol/L (98-107); CREATININE, SERUM 0.63 mg/dL (0.57-1.11); EST GLOMERULAR FILTRATION RATE > 60 ML/MIN (60-); GLUCOSE 90 mg/dL (74-118); POTASSIUM 3.7 mmol/L (3.5-5.1); SODIUM 143 mmol/L (136-145)
[2018-09-06 07:19] LABS: HYPOCHROMASIA MODERATE
[2018-09-06 07:20] LABS: ANISOCYTOSIS MODE; PLATELET ESTIMATE ADEQUATE; PLATELET MORPHOLOGY COMMENT NORMAL; POIKILOCYTOSIS SLIGHT; RBC MORPHOLOGY COMMENT ABNORMAL
[2018-09-06 08:00] VITALS: BP 122/56
[2018-09-06 08:32] VITALS: BP 122/56
[2018-09-06] MEDS ORDERED: HYOSCYAMINE SULFATE 0.5 MG/ML INJ ONE (12:41)
[2018-09-06] MEDS ORDERED: PROPOFOL IV EMULSION 10 MG/ML 50 ML VIAL ONE (12:41)
--- NOTE | 2018-09-06 14:42 | Operative Report ---
DATE OF PROCEDURE: September 06, 2018 REFERRING PHYSICIAN: Dr. Jermaine Alex. PROCEDURES PERFORMED: 1. Esophagogastroduodenoscopy with esophageal dilatation and balloon dilatation of pyloric channel stricture. 2. Colonoscopy with polypectomy. INDICATIONS FOR EGD: Dysphagia to solids. INDICATIONS FOR COLONOSCOPY: Severe iron deficiency anemia, brother with colon cancer. MEDICATION: Patient was done under MAC. Please see anesthesiologist's note. PROCEDURE: With the patient in the left lateral decubitus position, the flexible fiberoptic Olympus gastroscope was introduced into the esophagus under direct visualization without any difficulty. An approximately 4 mm ulcer was noted at the GE junction. There was a tight stricture noted at the GE junction that could not be traversed with the scope, was dilated to size 15 over a wire per Savary dilators. The scope was able to traverse the area with ease and advanced into the stomach, traversing a small hiatal hernia. Mucosa overlying the antrum and the body revealed some patchy erythema and moderate edema, and biopsies were obtained and sent to stain for H. pylori. Pyloric channel was strictured and could not be traversed with the scope, and that was dilated to size 18 mm per TTS balloon dilators. The scope was then advanced with ease through the pylorus all the way to the 2nd portion of the duodenum. The scope was then withdrawn slowly. Mucosa overlying the proximal 2nd portion and the duodenal bulb appeared to be within normal limits. The scope was then withdrawn back into the stomach and retroflexed, and the mucosa overlying the fundus grossly appeared to be within normal limits. The previously described hiatal hernia was also noted in the retroflexed position. The scope was then straightened out. It was subsequently withdrawn. Patient tolerated the procedure well. IMPRESSION: 1. Approximately 4 mm ulcer at gastroesophageal junction without active bleeding. 2. Esophageal stricture at gastroesophageal junction, tight, could not be traversed with the scope, dilated to size 15 Savary over a wire. 3. Small hiatal hernia. 4. Gastritis biopsied. Biopsies sent to stain for H. pylori. 5. Pyloric channel stricture dilated to size 18 mm per TTS balloon dilators. PLAN: Follow up histology. Initiate Protonix 40 mg 1 p.o. q.a.m. a.c. Patient was then turned around and after adequate lubrication of the anal canal, a flexible fiberoptic Olympus colonoscope was inserted into the rectum with ease and advanced all the way to the cecum. An approximately 6 mm sessile polyp was snared from the cecum, and it was hemoclipped. The ascending appeared to be within normal limits. Two polyps were snared, two polyps were hot biopsied from the transverse colon. The descending colon appeared to be within normal limits. Four polyps were removed from the sigmoid colon, three were snared, and some were up to 1.8 cm in size, and one was hot biopsied. One polyp in the rectum was hot biopsied. The scope was then retroflexed into the distal rectum and small internal hemorrhoids were noted, none of which was actively bleeding. The scope was then straightened out. It was subsequently withdrawn. Patient tolerated the procedure well. IMPRESSION: 1. Cecal polyp snared and polypectomy site hemoclipped. 2. Transverse colon polyps times 4, 2 snared and 2 hot biopsied. 3. Sigmoid colon polyps times 4 up to 1.8 cm in size, 3 were removed per snare electrocautery and 1 was hot biopsied. 4. Rectal polyp hot biopsied. 5. Internal hemorrhoids, none actively bleeding. PLAN: Follow up histology. Initiate high-fiber low-fat diet. Patient will need a followup colonoscopy in 1 year. A total of 10 polyps were removed. Job#: [id number] EV cc:JERMAINE ALEX MD
[2018-09-06] MEDS ORDERED: IRON325 M1 PO (15:57)
[2018-09-06] MEDS ORDERED: PROTONIX40 MG PO (15:58)
[2018-09-06] MEDS ORDERED: CLINDAMYCIN HC300 MG PO (15:59)
--- NOTE | 2018-09-06 16:06 | Discharge Summary ---
ADMIT DIAGNOSES 1. Sepsis secondary to right lower leg cellulitis. 2. Iron deficiency anemia. 3. Chronic obstructive pulmonary disease. 4. Tobacco abuse. 5. Hypertensive heart disease. 6. Peripheral artery disease. DISCHARGE DIAGNOSES 1. Sepsis secondary to right lower leg cellulitis, resolved. 1. Right lower leg cellulitis, resolving. 2. Iron deficiency anemia. 3. Endoscopically proven gastric ulcer. 4. Endoscopically proven multiple colonic polyps. 5. Chronic obstructive pulmonary disease. 6. Tobacco abuse. 7. Hypertensive heart disease. 8. Peripheral artery disease. HOSPITAL COURSE: This is a 73-year-old white woman who was initially admitted to [facility] with a diagnosis of sepsis secondary to right lower leg cellulitis. During this hospitalization, patient was also found to have profound anemia secondary to iron deficiency. Patient was actually transfused 2 units of packed red blood cells during this hospitalization. During this hospitalization, the hemoglobin dropped down to 5.8 g/dl. On the day of discharge, hemoglobin was 7.6 g/dl. The patient's clopidogrel was held during this hospital stay because of the iron deficiency anemia. During this hospital stay, the patient underwent upper and lower endoscopy which revealed a 4 mm gastric ulcer as well as gastritis and a pyloric stricture. The patient's gastric pylorus was dilated with a balloon. Also during this hospitalization, the patient underwent colonoscopy which revealed multiple sigmoid, transverse and cecal polyps that were biopsied. Patient also had a rectal polyp biopsied. Patient was found to have internal hemorrhoids but no active bleeding. Moreover, the gastric ulcer seen on upper endoscopy did not show any evidence of active bleeding. The patient tolerated these procedures quite well. Her hospitalization was unremarkable. Also during this hospitalization, patient had a chest x-ray performed which did not reveal any acute intrathoracic abnormality. The patient's condition on discharge was stable. DISCHARGE MEDICATIONS 1. Iron sulfate 325 mg twice a day. 2. Clindamycin 300 mg t.i.d. for 10 days. 3. Protonix 40 mg p.o. q.a.m. for 8 weeks. Patient was also instructed to stop clopidogrel for a total of 8 weeks. 4. Losartan 100 mg daily. FOLLOWUP INSTRUCTIONS: The patient is instructed to follow up with her primary care physician, namely Dr. Rolo Newell, within 2 weeks. Tobacco cessation was highly recommended to the patient. A prescription for a topical nicotine patch was offered to the patient, but she refused. ERNESTINA ALEX MD Job#: [id number] EV cc:DO MICHAEL SARKAR MD
[2018-09-06 16:19] VITALS: BP 117/56
[2018-09-06] MEDS ORDERED: FENTANYL CITRATE/PF 100MCG/2 ML INJ ONE (18:33)
[2018-09-06] MEDS ORDERED: MIDAZOLAM HCL 2 MG/2 ML VIAL ONE (18:33)
== END 2018-09-06 17:03 | disposition home or self-care (01) | DRG 872 ==
LOC: ER 17:24 → ERHOLD 21:31 → IMCU 23:57 → OBSVTOIN 09-04 09:18 → MED/SURG 09-04 10:03 → MED/SURG3 09-04 10:11
PROVIDERS: ADMIT Internal Medicine; ATTEND Internal Medicine
PROC: 30233N1 Transfusion of Nonautologous Red Blood Cells into Peripheral Vein, Percutaneous Approach (ICD-10-PCS; principal; 2018-09-05)
PROC: 0DBP8ZX Excision of Rectum, Via Natural or Artificial Opening Endoscopic, Diagnostic (ICD-10-PCS; 2018-09-05)
PROC: 0DBH8ZX Excision of Cecum, Via Natural or Artificial Opening Endoscopic, Diagnostic (ICD-10-PCS; 2018-09-06)
PROC: 0DBL8ZX Excision of Transverse Colon, Via Natural or Artificial Opening Endoscopic, Diagnostic (ICD-10-PCS; 2018-09-06)
PROC: 0DBN8ZX Excision of Sigmoid Colon, Via Natural or Artificial Opening Endoscopic, Diagnostic (ICD-10-PCS; 2018-09-06)
PROC: 0DB78ZX Excision of Stomach, Pylorus, Via Natural or Artificial Opening Endoscopic, Diagnostic (ICD-10-PCS; 2018-09-06 10:55)
PROC: 0D748ZZ Dilation of Esophagogastric Junction, Via Natural or Artificial Opening Endoscopic (ICD-10-PCS; 2018-09-06 10:55)
PROC: 0D778ZZ Dilation of Stomach, Pylorus, Via Natural or Artificial Opening Endoscopic (ICD-10-PCS; 2018-09-06 10:55)
DX: A41.9 Sepsis, unspecified organism (principal); L03.115 Cellulitis of right lower limb; K31.1 Adult hypertrophic pyloric stenosis; D50.0 Iron deficiency anemia secondary to blood loss (chronic); K25.9 Gastric ulcer, unspecified as acute or chronic, without hemorrhage or perforation; K22.2 Esophageal obstruction; K44.9 Diaphragmatic hernia without obstruction or gangrene; K63.5 Polyp of colon; K62.1 Rectal polyp; K64.8 Other hemorrhoids; J44.9 Chronic obstructive pulmonary disease, unspecified; I11.9 Hypertensive heart disease without heart failure; K29.70 Gastritis, unspecified, without bleeding; I73.9 Peripheral vascular disease, unspecified; Z79.82 Long term (current) use of aspirin; Z80.0 Family history of malignant neoplasm of digestive organs; Z83.79 Family history of other diseases of the digestive system
CPT/HCPCS: 36415; 43239; 43450; 45384; 45385; 71045; 80048; 80053; 81001; 82270; 82607; 82728; 83540; 83605; 84466; 85014; 85018; 85025; 86850; 86900; 86920; 87040; 87086; 88305; 88312; 96360; 99284; G0378; J1980; J2250; J2543; J7030; J7050; P9016

== ENCOUNTER → 2019-02-01 | Outpatient (CLI) | payer MEDICARE, OTHER ==
--- NOTE | 2019-02-01 16:20 | Diagnostic Imaging Report ---
EXAMINATION: CHEST 2 VIEWS INDICATION: Pneumonia with COPD. COMPARISON: Chest radiograph 09/04/[address] chest with contrast 07/15/2017. FINDINGS: TUBES and LINES: None. LUNGS: The lungs are hyperinflated. No evidence of lobar pneumonia or pulmonary edema. There is mild bronchial wall thickening. PLEURA: No pleural effusion or pneumothorax. HEART AND MEDIASTINUM: The cardiomediastinal silhouette is unremarkable. The aorta is ectatic with atherosclerotic calcifications. BONES AND SOFT TISSUES: No acute osseous abnormality. UPPER ABDOMEN: No free air under the diaphragm. IMPRESSION: Emphysematous changes of the lungs without radiographic evidence of lobar pneumonia. Mild bronchial wall thickening, which may reflect bronchitis in the setting of cough. Signed by: Dr. Kenna Jimenez MD on 02/01/2019 4:15 PM
== END ==
LOC: RAD 15:20
PROVIDERS: ATTEND Internal Medicine
DX: J15.9 Unspecified bacterial pneumonia (principal); J44.1 Chronic obstructive pulmonary disease with (acute) exacerbation
CPT/HCPCS: 71046

== ENCOUNTER 2020-07-30 14:17 | Outpatient (RCR) | payer MEDICARE, OTHER ==
[2020-07-13 15:59] LABS: BASOPHILS # (AUTO) 0.1 (0.0-0.1); BASOPHILS % 0.9 % (0.0-1.0); EOSINOPHILS # (AUTO) 0.5 (0.0-0.4); EOSINOPHILS % 5.1 % (0.0-6.0); HEMATOCRIT 35.4 % (34.2-44.1); HEMOGLOBIN 10.9 g/dL (12.0-16.0); LYMPHOCYTES # (AUTO) 3.1 (1.0-3.2); LYMPHOCYTES % 29.7 % (18.0-39.1); MEAN CORPUSCULAR HEMOGLOBIN 27.3 pg (28-32); MEAN CORPUSCULAR HGB CONC 30.8 g/dL (31-35); MEAN CORPUSCULAR VOLUME 88.5 fL (81-99); MONOCYTES # (AUTO) 0.9 (0.2-0.8); MONOCYTES % 8.1 % (4.4-11.3); NEUTROPHILS # (AUTO) 5.9 (2.1-6.9); NEUTROPHILS % 55.9 % (38.7-80.0); PLATELET COUNT 272 x10e3/uL (140-360); RED CELL DISTRIBUTION WIDTH 15.4 % (11.7-14.4)
[2020-07-13 16:12] LABS: ANION GAP 15.4 mmol/L (8-16); BLOOD UREA NITROGEN 20 mg/dL (7-26); BUN/CREATININE RATIO 26 (6-25); CALCIUM 9.1 mg/dL (8.4-10.2); CARBON DIOXIDE 21 mmol/L (22-29); CHLORIDE 108 mmol/L (98-107); CREATININE, SERUM 0.76 mg/dL (0.57-1.11); EST GLOMERULAR FILTRATION RATE > 60 ML/MIN (60-); GLUCOSE 87 mg/dL (74-118); POTASSIUM 4.4 mmol/L (3.5-5.1); SODIUM 140 mmol/L (136-145)
[~2020-07-30 14:17] MED LIST changes: +COLLAGENASE OINTMENT 30 GM TUBE ONE; +LIDOCAINE/PRILOCAINE 2.5-2.5% KIT ONE
== END 2020-08-04 ==
LOC: WCC 14:17
PROVIDERS: ATTEND Internal Medicine Infectious Disease
DX: I70.238 Atherosclerosis of native arteries of right leg with ulceration of other part of lower leg (principal); L97.811 Non-pressure chronic ulcer of other part of right lower leg limited to breakdown of skin; L97.819 Non-pressure chronic ulcer of other part of right lower leg with unspecified severity; I79.8 Other disorders of arteries, arterioles and capillaries in diseases classified elsewhere; I87.2 Venous insufficiency (chronic) (peripheral); R60.0 Localized edema; I10 Essential (primary) hypertension
CPT/HCPCS: 36415; 80048; 84134; 85025; 87071; 87075; 87186; 87205

== ENCOUNTER → 2020-08-01 | Outpatient (CLI) | payer MEDICARE, OTHER ==
[~2020-08-01] MED LIST changes: -COLLAGENASE OINTMENT 30 GM TUBE ONE; -LIDOCAINE/PRILOCAINE 2.5-2.5% KIT ONE
[2020-08-01 12:57] LABS: HEMOGLOBIN 10.5 g/dL (12.0-16.0)
[2020-08-01 13:08] LABS: INR 0.93; PROTHROMBIN TIME 12.9 seconds (11.9-14.5)
[2020-08-01 13:09] LABS: PARTIAL THROMBOPLASTIN TIME 32.4 seconds (23.8-35.5)
[2020-08-01 13:12] LABS: BLOOD UREA NITROGEN 14 mg/dL (7-26); BUN/CREATININE RATIO 19 (6-25); CREATININE, SERUM 0.74 mg/dL (0.57-1.11); EST GLOMERULAR FILTRATION RATE > 60 ML/MIN (60-)
--- NOTE | 2020-08-01 15:24 | Diagnostic Imaging Report ---
EXAM: CHEST XRAY LINE PLACEMENT DATE: 08/01/2020 2:00 PM INDICATION: PICC placement COMPARISON: 02/01/2019 FINDINGS: Left-sided PICC line identified with distal tip terminating over the mid SVC. The trachea is midline. The lungs are symmetrically expanded without evidence for focal consolidation, pneumothorax, or significant pleural effusion. The cardiomediastinal silhouette is stable in appearance. Stable ectasia noted of the thoracic aorta with atherosclerotic calcifications. No acute osseous abnormality is identified. IMPRESSION: Left-sided PICC line identified with distal tip terminating over the mid SVC. Signed by: Dr. Arpit Huerta MD on 08/01/2020 3:20 PM
== END ==
LOC: DX 12:30
PROVIDERS: ATTEND Internal Medicine Infectious Disease
DX: Z45.2 Encounter for adjustment and management of vascular access device (principal); L97.919 Non-pressure chronic ulcer of unspecified part of right lower leg with unspecified severity
CPT/HCPCS: 36415; 36569; 71045; 82565; 84520; 85014; 85049; 85610; 85730

== ENCOUNTER 2020-08-31 13:16 | Outpatient (RCR) | payer MEDICARE, OTHER ==
[~2020-08-31 13:16] MED LIST changes: +COLLAGENASE OINTMENT 30 GM TUBE ONE; +LIDOCAINE VISC 2% SOLN 15 ML UDC ONE
[2020-08-31] MEDS ORDERED: LIDOCAINE VISC 2% SOLN 15 ML UDC ONE (13:22)
[2020-08-31] MEDS ORDERED: CADEXOMER IODINE 30 GM TUBE ONE (13:22)
[2020-08-31] MEDS ORDERED: LIDOCAINE/PRILOCAINE 2.5-2.5% KIT ONE (13:22)
== END 2020-09-03 ==
LOC: WCC 13:16
PROVIDERS: ATTEND Internal Medicine Infectious Disease
DX: I70.233 Atherosclerosis of native arteries of right leg with ulceration of ankle (principal); L97.311 Non-pressure chronic ulcer of right ankle limited to breakdown of skin; L97.819 Non-pressure chronic ulcer of other part of right lower leg with unspecified severity; I82.4Y1 Acute embolism and thrombosis of unspecified deep veins of right proximal lower extremity; I87.2 Venous insufficiency (chronic) (peripheral); R60.0 Localized edema; I79.8 Other disorders of arteries, arterioles and capillaries in diseases classified elsewhere; B96.89 Other specified bacterial agents as the cause of diseases classified elsewhere; I10 Essential (primary) hypertension

== ENCOUNTER → 2020-09-24 | Outpatient (CLI) | payer MEDICARE, OTHER ==
[~2020-09-24] MED LIST changes: -COLLAGENASE OINTMENT 30 GM TUBE ONE; +IOPAMIDOL 370 MG/ML 200 ML INFUS..BTL INJ ONE; -LIDOCAINE VISC 2% SOLN 15 ML UDC ONE; +SODIUM CHLORIDE 0.9% 100 ML ONE
[2020-09-24 15:19] LABS: BLOOD UREA NITROGEN 13 mg/dL (7-26); BUN/CREATININE RATIO 16 (6-25); CREATININE, SERUM 0.82 mg/dL (0.57-1.11); EST GLOMERULAR FILTRATION RATE > 60 ML/MIN (60-)
== END ==
LOC: CT 14:32
PROVIDERS: ATTEND Thoracic Surgery (Cardiothoracic Vascular Surgery)
DX: I73.9 Peripheral vascular disease, unspecified (principal); Z94.5 Skin transplant status
CPT/HCPCS: 36415; 75635; 82565; 84520; J7050; Q9967

== ENCOUNTER 2020-10-03 14:47 | Outpatient (RCR) | payer MEDICARE, OTHER ==
[~2020-10-03 14:47] MED LIST changes: +COLLAGENASE OINTMENT 30 GM TUBE ONE; -IOPAMIDOL 370 MG/ML 200 ML INFUS..BTL INJ ONE; +LIDOCAINE/PRILOCAINE 2.5-2.5% KIT ONE; -SODIUM CHLORIDE 0.9% 100 ML ONE
== END 2020-10-04 ==
LOC: WCC 14:47
PROVIDERS: ATTEND Internal Medicine Infectious Disease
DX: I70.233 Atherosclerosis of native arteries of right leg with ulceration of ankle (principal); I70.238 Atherosclerosis of native arteries of right leg with ulceration of other part of lower leg; L97.311 Non-pressure chronic ulcer of right ankle limited to breakdown of skin; L97.819 Non-pressure chronic ulcer of other part of right lower leg with unspecified severity; I82.4Y1 Acute embolism and thrombosis of unspecified deep veins of right proximal lower extremity; I87.2 Venous insufficiency (chronic) (peripheral); I79.8 Other disorders of arteries, arterioles and capillaries in diseases classified elsewhere; B96.89 Other specified bacterial agents as the cause of diseases classified elsewhere; R60.0 Localized edema; I10 Essential (primary) hypertension

== ENCOUNTER → 2020-10-08 | Outpatient (CLI) | payer MEDICARE, OTHER ==
[~2020-10-08] MED LIST changes: -COLLAGENASE OINTMENT 30 GM TUBE ONE; -LIDOCAINE/PRILOCAINE 2.5-2.5% KIT ONE
[2020-10-08 11:20] LABS: HEMOGLOBIN 10.6 g/dL (12.0-16.0)
[2020-10-08 11:37] LABS: INR 1.08; PARTIAL THROMBOPLASTIN TIME 31.6 seconds (23.8-35.5); PROTHROMBIN TIME 14.7 seconds (11.9-14.5)
[2020-10-08 11:41] LABS: BLOOD UREA NITROGEN 14 mg/dL (7-26); BUN/CREATININE RATIO 20 (6-25); CREATININE, SERUM 0.69 mg/dL (0.57-1.11); EST GLOMERULAR FILTRATION RATE > 60 ML/MIN (60-)
== END ==
LOC: DX 10:52
PROVIDERS: ATTEND Internal Medicine Infectious Disease
DX: I70.238 Atherosclerosis of native arteries of right leg with ulceration of other part of lower leg (principal); L97.819 Non-pressure chronic ulcer of other part of right lower leg with unspecified severity; I99.8 Other disorder of circulatory system
CPT/HCPCS: 36415; 36569; 71045; 82565; 84520; 85014; 85049; 85610; 85730

== ENCOUNTER 2020-10-29 13:01 | Outpatient (RCR) | payer MEDICARE, OTHER ==
[~2020-10-29 13:01] MED LIST changes: +COLLAGENASE OINTMENT 30 GM TUBE ONE; +LIDOCAINE/PRILOCAINE 2.5-2.5% KIT ONE
== END 2020-11-04 ==
LOC: WCC 13:01
PROVIDERS: ATTEND Internal Medicine Infectious Disease
DX: I70.233 Atherosclerosis of native arteries of right leg with ulceration of ankle (principal); I70.238 Atherosclerosis of native arteries of right leg with ulceration of other part of lower leg; L97.311 Non-pressure chronic ulcer of right ankle limited to breakdown of skin; L97.819 Non-pressure chronic ulcer of other part of right lower leg with unspecified severity; I82.4Y1 Acute embolism and thrombosis of unspecified deep veins of right proximal lower extremity; L03.115 Cellulitis of right lower limb; I87.2 Venous insufficiency (chronic) (peripheral); R60.0 Localized edema; I79.8 Other disorders of arteries, arterioles and capillaries in diseases classified elsewhere; R09.02 Hypoxemia; I10 Essential (primary) hypertension; B96.89 Other specified bacterial agents as the cause of diseases classified elsewhere; I99.8 Other disorder of circulatory system

== ENCOUNTER → 2020-11-09 | Outpatient (CLI) | payer MEDICARE, OTHER ==
[~2020-11-09] MED LIST changes: -COLLAGENASE OINTMENT 30 GM TUBE ONE; -LIDOCAINE/PRILOCAINE 2.5-2.5% KIT ONE
== END ==
LOC: RAD 10:38
PROVIDERS: ATTEND Plastic Surgery
DX: I87.2 Venous insufficiency (chronic) (peripheral) (principal)
CPT/HCPCS: 93971

== ENCOUNTER 2020-11-16 14:17 | Outpatient (RCR) | payer MEDICARE, OTHER ==
[~2020-11-16 14:17] MED LIST changes: +COLLAGENASE OINTMENT 30 GM TUBE ONE
== END 2020-12-02 ==
LOC: WCC 14:17
PROVIDERS: ATTEND Plastic Surgery
DX: I70.233 Atherosclerosis of native arteries of right leg with ulceration of ankle (principal); R09.02 Hypoxemia; L97.311 Non-pressure chronic ulcer of right ankle limited to breakdown of skin; L97.819 Non-pressure chronic ulcer of other part of right lower leg with unspecified severity; I82.4Y1 Acute embolism and thrombosis of unspecified deep veins of right proximal lower extremity; L03.115 Cellulitis of right lower limb; R60.0 Localized edema; I87.2 Venous insufficiency (chronic) (peripheral); I70.238 Atherosclerosis of native arteries of right leg with ulceration of other part of lower leg; I79.8 Other disorders of arteries, arterioles and capillaries in diseases classified elsewhere; I10 Essential (primary) hypertension; B96.89 Other specified bacterial agents as the cause of diseases classified elsewhere

== ENCOUNTER 2020-12-17 13:29 | Outpatient (RCR) | payer MEDICARE, OTHER ==
[~2020-12-17 13:29] MED LIST changes: +COLLAGENASE OINTMENT 30 GM TUBE ONE; +LIDOCAINE VISC 2% SOLN 15 ML UDC ONE; +MUPIROCIN 2% OINT 22 GM TUBE ONE
[2020-12-17] MEDS ORDERED: IOPAMIDOL 370 MG/ML 200 ML INFUS..BTL INJ ONE (16:54)
[2020-12-17] MEDS ORDERED: SODIUM CHLORIDE 0.9% 100 ML ONE (16:54)
== END 2021-01-02 ==
LOC: WCC 13:29
PROVIDERS: ATTEND Plastic Surgery
DX: I70.233 Atherosclerosis of native arteries of right leg with ulceration of ankle (principal); L97.311 Non-pressure chronic ulcer of right ankle limited to breakdown of skin; L97.819 Non-pressure chronic ulcer of other part of right lower leg with unspecified severity; L03.115 Cellulitis of right lower limb; I82.4Y1 Acute embolism and thrombosis of unspecified deep veins of right proximal lower extremity; I70.238 Atherosclerosis of native arteries of right leg with ulceration of other part of lower leg; I79.8 Other disorders of arteries, arterioles and capillaries in diseases classified elsewhere; I87.2 Venous insufficiency (chronic) (peripheral); R60.0 Localized edema; R09.02 Hypoxemia
CPT/HCPCS: 97602; 99213 ×3; J7050; Q9967

== ENCOUNTER → 2020-12-17 | Outpatient (CLI) | payer MEDICARE, OTHER ==
[~2020-12-17] MED LIST changes: -COLLAGENASE OINTMENT 30 GM TUBE ONE
[2020-12-17 15:06] LABS: BLOOD UREA NITROGEN 12 mg/dL (7-26); BUN/CREATININE RATIO 15 (6-25); CREATININE, SERUM 0.78 mg/dL (0.57-1.11); EST GLOMERULAR FILTRATION RATE > 60 ML/MIN (60-)
== END ==
LOC: CT 14:22
PROVIDERS: ATTEND Thoracic Surgery (Cardiothoracic Vascular Surgery)
DX: I70.8 Atherosclerosis of other arteries (principal)
CPT/HCPCS: 36415; 82565; 84520